=== PATIENT | male | born 1970 | race Caucasian/White ===

== ENCOUNTER 2020-06-23 06:17 | Emergency (ER) | payer OTHER, SELFPAY ==
[2020-06-23] VITALS (38 sets, daily range): BP systolic 145–184; BP diastolic 87–105; PULSE 81–113; RESP 12–42; TEMP 36.7; O2SAT 77–100
--- NOTE | ~2020-06-23 | XR_ITS ---
EXAMINATION: XR chest 1V portable EXAM DATE: 06/23/2020 07:31 INDICATION: Midsternal chest pain, shortness of breath. History of reflux. TECHNIQUE: Portable AP frontal chest x-ray was obtained. There is no prior study for comparison. FINDINGS: The lungs are clear. There are no pleural effusions. The cardiomediastinal silhouette is within normal limits. There is no pneumothorax suspected. The bones and soft tissues are unremarkab le. IMPRESSION: Normal chest x-ray exam. Reviewed, dictated and finalized at location A. IMPRESSION: Normal chest x-ray exam.
--- NOTE | ~2020-06-23 | CT_ITS ---
EXAMINATION: CTA chest PE abdomen pel EXAM DATE: 06/23/2020 09:46 INDICATION: Upper abdominal pain, intractable nausea, vomiting. TECHNIQUE: Spiral CTA of the chest (pulmonary arteries) was performed with 100 cc Omnipaque 350 intr avenous contrast injection. Images were acquired during the pulmonary arterial phase. Coronal maxi mum intensity projection 3D-reconstructions were created by the technologist on dedicated workstation . Axial, coronal and sagittal reformatted images were reviewed. Spiral CT of the abdomen and pelvis was then performed with the same intravenous contrast injection. Axial, coronal and sagittal reform atted images were reviewed. The dose-length product (DLP) for this examination was 2316.90 mGy-cm. The exposure was tailored according to patient size (auto mA exposure control), and iterative recons truction (ASIR) was used as additional dose reduction technique. Correlation is made to CT abdomen pe lvis 10/29/2013. FINDINGS: CHEST: There are no pulmonary emboli in the 1st through 3rd order (central and interlobar) pulmonary arteries. Some loss of attenuation in the right basilar segmental pulmonary from respiratory motion , these regions not confidently evaluated. No Intraluminal filling defects identified. No thoracic aortic dissection. The lungs are clear. There are no pleural or pericardial effusions. Tracheobr onchial tree is patent. There is no mediastinal, hilar or axillary lymphadenopathy. There is no p neumothorax. Heart normal in size. No evidence of coronary arterial calcification. The mid and d istal esophageal wall appears to have thickened wall, probably esophagitis. ABDOMEN PELVIS: There is hepatic steatosis without suspicious focal lesion identified. Spleen, adrena l glands, pancreas are unremarkable. Gallbladder is unremarkable. No biliary obstruction. Portal a nd splenic veins are patent. Kidneys enhance symmetrically. There is no hydronephrosis. The prost ate is unremarkable. The bladder is unremarkable. There is no retroperitoneal or pelvic lymphadenop athy. 0 The appendix is normal. There is mild scattered colonic diverticulosis. There is no adjacent inflamm atory change to suggest diverticulitis. The stomach and small bowel are unremarkable. There is expec rayshawn amount of colonic stool. No free intraperitoneal gas. There are no osteoblastic or osteolytic lesions identified. IMPRESSION: 1. Mid and distal esophageal edema, esophagitis. 2. Mild colonic diverticulosis. 3. Hepatic steatosis. 4. No evidence of pulmonary embolism. Reviewed, dictated and finalized at location A.
--- NOTE | 2020-06-23 06:40 | ECG_ITS ---
Measurements Intervals [place] Rate: 93 P: 53 LA: 198 QRS: 27 QRSD: 87 T: 81 QT: 378 QTc: 470 Interpretive Statements SINUS RHYTHM EARLY PRECORDIAL R/S TRANSITION NONSPECIFIC T-WAVE ABNORMALITY- HIGH LATERAL LEADS BORDERLINE ECG Electronically Signed On 06-23-2020 8:00:50 CDT by Meet Webster D.O.
[2020-06-23 07:02] LABS: Basophils Absolute Auto 0.1 K/mm3 (0.0-0.1); Basophils Percent Auto 0.4 % (0.2-1.2); Eosinophils Absolute Auto 1.6 K/mm3 (0-0.3); Eosinophils Percent Auto 7.1 % (0-4.4); Hematocrit 46.7 % (42.0-52.0); Immature Granulocyte Absolute 0.22 K/mm3 (0.00-0.031); Lymphocytes Absolute Auto 1.26 K/mm3 (0.9-3.2); Lymphocytes Percent Auto 5.6 % (18.3-44.2); Mean Corpuscular HGB Conc 34.3 g/dl (32-36); Mean Corpuscular Volume 87.5 fl (80-100); Mean Platelet Volume 8.3 fl (7.4-10.4); Monocytes Absolute Auto 0.8 K/mm3 (0.1-0.6); Monocytes Percent Auto 3.6 % (2.6-8.5); Neutrophils Absolute Auto 18.4 K/mm3 (1.3-6.7); Neutrophils Percent Auto 82.3 % (45.5-73.1); Platelet Count Result 369 k/mm3 (150-375); Red Blood Count 5.34 M/mm3 (4.6-6.20); White Blood Count 22.4 K/mm3 (4.5-10.0)
[2020-06-23 07:17] LABS: Prothrombin Time 13.7 Seconds (11.1-14.7)
[2020-06-23 07:18] LABS: Partial Thromboplastin Time 33.7 SECONDS (22.3-36.8)
[2020-06-23 07:20] LABS: Alanine Aminotransferase 46 U/L (4-50); Alkaline Phosphatase 115 U/L (38-126); Anion Gap 15 mmol/L (8-16); Aspartate Amino Transferase 66 U/L (17-59); Bilirubin,Total 0.9 mg/dL (0.2-1.3); Blood Urea Nitrogen 21 mg/dL (9-20); Calcium 9.2 mg/dL (8.4-10.2); Carbon Dioxide 22 mmol/L (22-30); Chloride 99 mmol/L (98-107); Estimated CRCL calculation 120 ml/min; Estimated Glomerular Filt Rate > 60; Glucose 119 mg/dL (75-110); Lipase 82 U/L (23-300); Potassium 4.1 mmol/L (3.4-5.0); Sodium 136 mmol/L (137-145)
[2020-06-23 07:31] LABS: Troponin I < 0.012 ng/mL (0.000-0.034)
[2020-06-23] MEDS: ONDANSETRON INJ 4 MG/2 ML VIAL IV PUSH (07:32)
[2020-06-23] MEDS: PANTOPRAZOLE SODIUM IV 40 MG VIAL IV PUSH (07:32)
[2020-06-23] MEDS: BELLADONNA ALK/PHENOB ELIX 10 ML, MAG HYDROX/ALUMINUM HYD/SIMETH 30 ML, LIDOCAINE HCL 2... PO (07:32)
[2020-06-23] MEDS: LACTATED RINGERS 1,000 ML 999 ML IV CONT (07:32)
--- NOTE | 2020-06-23 07:40 | ED.GENADULT ---
HPI - General Adult General Chief complaint: Shortness of Breath/Dyspnea Stated complaint: SOB Time Seen by Provider: 06/23/20 07:00 Source: patient Mode of arrival: ambulatory Limitations: no limitations History of Present Illness HPI narrative: This is a 50 year old male with history of anxiety and GERD who presents for evaluation of nausea, vomiting and heart burn . He developed heartburn after eating dinner last night around 5 pm. He took Prilosec at that time without relief. He developed nausea, vomiting around 1030 last night and he continues to have vomiting. He is complaining of epigastric pain that radiates to his chest that has been constant since midnight. He has taken Peptol Bismol without relief of his symptoms. He also reports shortness of breath. He reports chills but he denies fever. He reports he had a normal bowel movement last night. He denies hematemesis or coffee ground emesis. Related Data Home Medications Medication Instructions Recorded Confirmed alprazolam 0.5 mg PO DAILY 03/11/19 03/14/19 cyclobenzaprine 10 mg PO DAILY 03/11/19 03/14/19 multivitamin [Multiple Vitamins] 1 tablet PO DAILY 03/11/19 03/14/19 omeprazole 20 mg PO DAILY 03/11/19 03/14/19 Allergies Allergy/AdvReac Type Severity Reaction Status Date / Time prochlorperazine Allergy Jittery Verified 06/23/20 06:30 [From Compazine] Review of Systems Review of Systems: All systems reviewed & are unremarkable except as noted in HPI and below PMFSH Past Medical History Medical History (Updated 06/23/20 @ 11:12 by Shani Peres MD) Anxiety GERD (gastroesophageal reflux disease) Social History Social History (Updated 06/23/20 @ 07:43 by Shani Peres MD) Smoking status: Never smoker Alcohol intake: current Substance use: never Exam Const: General: alert Orientation/consciousness: patient oriented x3 Other: hyperventilating Eyes: EOM: EOMs intact bilaterally Chest: Chest palpation & inspection: normal inspection of the chest Resp: Effort & Inspection: no retractions, tachypneic and no use of accessory muscles Auscultation: clear to auscultation bilaterally and no wheezes Cardio: Rate: regular rate Rhythm: regular rhythm Heart sounds: no murmurs GI: GI Palp: Yes Soft to palpation, No Tenderness to palpation present (GI), No Guarding due to palpation present (GI) and No Rigid due to palpation Auscultation: normal bowel sounds Skin: General skin exam: normal color Rashes: no rashes Neuro: General: patient oriented x3, moves all extremities and CN's II-XI intact bilaterally Psych: Affect: Anxious affect present Course Reevaluation(s) Reevaluation #1: PAtient appears more comfortable. He has no complaints. I reviewed labs and CT with patient. The cause of his symptoms appear to be GERD, esophagitis. He has had negative troponin x 2. He reports within the past year had negative coronary evaluation which showed no plaques so cardiac unlikely. I spoke with Mechanical Maintenance Supervisor, Dr. Adkins , who recommends high dose PPI with carafate and call for EGD as outpatient. Date: 06/23/20 Time: 11:09 Vital Signs Vital signs: Vital Signs Temperature 98.1 F 06/23/20 06:21 Pulse Rate 94 06/23/20 06:21 Respiratory Rate 36 H 06/23/20 06:21 Blood Pressure 169/105 H 06/23/20 06:21 Pulse Oximetry 100 06/23/20 06:21 Temperature 98.1 F 06/23/20 06:21 Pulse Rate 97 06/23/20 11:16 Respiratory Rate 12 06/23/20 11:16 Blood Pressure 165/87 H 06/23/20 11:16 Pulse Oximetry 99 06/23/20 11:16 Medical Decision Making Vital Signs Vital Signs: Vital Signs Temperature 98.1 F 06/23/20 06:21 Pulse Rate 94 06/23/20 06:21 Respiratory Rate 36 H 06/23/20 06:21 Blood Pressure 169/105 H 06/23/20 06:21 Pulse Oximetry 100 06/23/20 06:21 Temperature 98.1 F 06/23/20 06:21 Pulse Rate 97 06/23/20 11:16 Respiratory Rate 12 06/23/20 11:16 Blood
[2020-06-23] MEDS: diazePAM INJ (*CRX) 10 MG/2 ML SYRINGE 5 MG IV PUSH (08:17)
[2020-06-23] MEDS: diazePAM INJ (*CRX) 10 MG/2 ML SYRINGE 2.5 MG IV PUSH (09:32)
[2020-06-23 09:57] LABS: Troponin I < 0.012 ng/mL (0.000-0.034)
[2020-06-23] MEDS: NITROGLYCERIN SL 0.4 MG TABLET SUBLINGUAL (10:17)
--- NOTE | 2020-06-23 10:25 | PC.NURSE ---
Pt. stated nitro improved somewhat with chest discomfort after 2 nitros. Rating pain a 5/10 to a 4/10. ERP aware.
== END 2020-06-23 11:25 | disposition home or self-care (01) ==
PROVIDERS: Emergency Medicine; Emergency Provider General Practice; PCP Nurse Practitioner Adult Health
DX: F41.9 Anxiety disorder, unspecified (principal); K21.9 Gastro-esophageal reflux disease without esophagitis; K20.90 Esophagitis, unspecified without bleeding; K57.90 Diverticulosis of intestine, part unspecified, without perforation or abscess without bleeding; K76.0 Fatty (change of) liver, not elsewhere classified; R94.31 Abnormal electrocardiogram [ECG] [EKG]
CPT/HCPCS: 36415; 71045; 71275; 74177; 80053; 83690; 84484; 85025; 85610; 85730; 93005; 96361; 96374; 96375; 96376; 99284; A9270; C9113; J2405; J3360; J7120; Q9967

== ENCOUNTER → 2020-07-02 01:56 | Outpatient (CLI) | payer OTHER, SELFPAY ==
[2020-07-02 19:04] LABS: SARS-CoV-2 RNA PCR Negative
== END ==
PROVIDERS: PCP Nurse Practitioner Adult Health; Visit Provider Internal Medicine Gastroenterology
DX: Z01.812 Encounter for preprocedural laboratory examination (principal); Z20.822 Contact with and (suspected) exposure to COVID-19
CPT/HCPCS: C9803; U0003; U0005

== ENCOUNTER 2020-07-05 01:51 | Day surgery (SDC) | payer OTHER, SELFPAY ==
[2020-06-29 14:48] VITALS: BMI 34.4
[2020-07-05 06:59] VITALS: BP 110/52; PULSE 96; RESP 96; TEMP 36.7; O2SAT 98; BMI 35.6
--- NOTE | 2020-07-05 07:08 | PM.HPGS ---
History of Present Illness History of Present Illness Consent: Risks, benefits, and alternatives have been discussed and questions answered. Patient agrees to proceed with procedure. Chief complaint: esphogiaitis Narrative: Jose Camacho II is a 50 year old male Referred for evaluation of severe reflux symptoms. He had been on omeprazole for quite a while taking 20 or 40 mg a day. Two weeks ago after eating dinner he had severe pain in his chest and actually felt somewhat short of breath with that. There were also several episodes of vomiting. He was seen in the emergency room. Cardiac evaluation was negative. His CT scan showed thickening of the distal esophagus. He was sent home on pantoprazole b.i.d.. He s denies recent dysphagia, but recalls many years ago having had an issue when someone told him that his throat or esophagus was partially closed or narrrow. Review of Systems Review of Systems: All systems reviewed & are unremarkable except as noted in HPI and below PMFSH Past Medical History Medical History (Updated 07/05/20 @ 07:10 by Randy Gonzalez MD) Anxiety GERD (gastroesophageal reflux disease) Social History Social History Smoking status: Never smoker Alcohol intake: current Alcohol use details: socially Substance use: never Substance use type: marijuana Living arrangements: with family Gender identity (if verbalized by the patient): Male Spiritual care concerns: No Meds Home Medications and Allergies Home Medications Medication Instructions Recorded Confirmed Type alprazolam 2.5 mg PO DAILY 03/11/19 07/05/20 History cyclobenzaprine 10 mg PO TID 03/11/19 07/05/20 History multivitamin [Multiple Vitamins] 1 tablet PO DAILY 03/11/19 07/05/20 History ondansetron HCl [Zofran] 4 mg PO Q6H PRN #10 tablet 06/23/20 07/05/20 Rx pantoprazole 40 mg PO BID 14 Days #28 tablet 06/23/20 07/05/20 Rx aspirin 325 mg PO DAILY 06/29/20 07/05/20 History Allergies Allergy/AdvReac Type Severity Reaction Status Date / Time prochlorperazine Allergy Jittery Verified 07/05/20 06:58 [From Compazine] Vital Signs Vital Signs - 24 hr 07/05/20 06:59 Temperature 36.7 C Pulse Rate 96 Respiratory Rate 96 H Blood Pressure 110/52 L Pulse Oximetry 98 Exam Const: General: alert Orientation/consciousness: patient oriented x3 Resp: Auscultation: clear to auscultation bilaterally Cardio: Rhythm: regular rhythm GI: GI Palp: Yes Soft to palpation and No Tenderness to palpation present (GI) Neuro: General: patient oriented x3 Assessment and Plan Assessment and plan (1) GERD (gastroesophageal reflux disease): Code(s): K21.9 - Gastro-esophageal reflux disease without esophagitis Status: Acute Assessment and Plan: EGD with possible biopsy or dilatation or cautery.
[2020-07-05] MEDS: LACTATED RINGERS 1,000 ML 150 ML IV CONT (07:14)
--- NOTE | 2020-07-05 07:14 | P.PNAN_ITS ---
Anes - Initial Pre Proc Eval Procedure: Operation Date: 07/05/20 08:00 Proposed Procedures p Esophagogastroduodenoscopy - Randy Gonzalez MD Date/Time: 07/05/20 07:14 Surgeon: Randy Gonzalez MD Pre Op Diagnosis: esphogiaitis Patient Data Age: 50 Gender: M Height: 5 ft 10 in Weight: 112.9 kg Last Vital Signs Temp 36.7 C 07/05/20 06:59 Pulse 96 07/05/20 06:59 Resp 96 H 07/05/20 06:59 BP 110/52 L 07/05/20 06:59 Pulse Ox 98 07/05/20 06:59 Allergies Allergy/AdvReac Type Severity Reaction Status Date / Time prochlorperazine Allergy Jittery Verified 07/05/20 06:58 [From Compazine] Home Medications Medication Instructions Recorded Confirmed Type alprazolam 2.5 mg PO DAILY 03/11/19 07/05/20 History cyclobenzaprine 10 mg PO TID 03/11/19 07/05/20 History multivitamin [Multiple Vitamins] 1 tablet PO DAILY 03/11/19 07/05/20 History ondansetron HCl [Zofran] 4 mg PO Q6H PRN #10 tablet 06/23/20 07/05/20 Rx pantoprazole 40 mg PO BID 14 Days #28 tablet 06/23/20 07/05/20 Rx aspirin 325 mg PO DAILY 06/29/20 07/05/20 History Patient hx anesthesia problems: none Family hx anesthesia problems: none [facility] Past Medical History Medical History (Updated 07/05/20 @ 07:15 by Cruz Rankin MD) Anxiety GERD (gastroesophageal reflux disease) Obesity Surgical History Surgical History (Updated 07/05/20 @ 07:19 by Cruz Rankin MD) H/O colonoscopy Social History Social History Smoking status: Never smoker Alcohol intake: current Alcohol use details: socially Substance use: never Substance use type: marijuana Living arrangements: with family Gender identity (if verbalized by the patient): Male Spiritual care concerns: No Anes - Eval Final PreProcedure Day of Procedure 07/05/20 07:14 Patient weight: obese Heart: regular rate and rhythm Lungs: clear to auscultation Airway: Mallampati scale class II Neurological: alert and oriented Last oral intake: >/= 8 hours ASA classification: II Emergent: no Anesthetic plan: proceed Anesthesia type and monitoring: general GIVS and standard monitoring Informed Consent: The patient's anesthetic plan and its attendant risks and benefits were discussed with the patient/family/POA. Questions were solicited and answers provided to the satisfaction of the patient/family/POA.
[2020-07-05 08:02] VITALS: BP 136/86; PULSE 92; RESP 18; O2SAT 100
[2020-07-05 08:12] VITALS: BP 142/101; PULSE 95; RESP 20; O2SAT 100
[2020-07-05 08:22] VITALS: BP 134/90; PULSE 83; RESP 17; O2SAT 100
== END 2020-07-05 08:36 | disposition home or self-care (01) ==
PROVIDERS: PCP Nurse Practitioner Adult Health; Visit Provider Internal Medicine Gastroenterology
PROC: 0DJ08ZZ Inspection of Upper Intestinal Tract, Via Natural or Artificial Opening Endoscopic (ICD-10-PCS; CPT 43235; principal; 2020-07-05 08:00)
DX: K21.9 Gastro-esophageal reflux disease without esophagitis (principal); K31.7 Polyp of stomach and duodenum; F41.9 Anxiety disorder, unspecified; E66.9 Obesity, unspecified; Z68.35 Body mass index [BMI] 35.0-35.9, adult
CPT/HCPCS: 43239; 88305; 88313; C9803; J2704; J7120; U0003; U0005

== ENCOUNTER 2021-05-13 10:45 | Outpatient (CLI) | payer OTHER, SELFPAY ==
--- NOTE | ~2021-05-13 | US_ITS ---
EXAMINATION: US soft tissue lower back DATE: 05/13/2021 11:08 INDICATION: Mass of skin of the back. TECHNIQUE: Multiple grayscale and Doppler ultrasound images of the lower back were obtained. COMPARISON: CT 06/23/2020 FINDINGS: There is no abnormal soft tissue mass in the patient's area of concern in right lower back. IMPRESSION: 1. No abnormal soft tissue mass in the patient's area of concern in right lower back. Reviewed, dictated and finalized at location A. NKLER HELPER
== END 2021-05-13 10:46 | disposition home or self-care (01) ==
PROVIDERS: PCP Nurse Practitioner Adult Health; Visit Provider Nurse Practitioner Adult Health
DX: R22.2 Localized swelling, mass and lump, trunk (principal)
CPT/HCPCS: 76705

== ENCOUNTER 2023-02-02 01:28 | Day surgery (SDC) | payer OTHER, SELFPAY ==
[2023-01-23 10:47] VITALS: BMI 34.4
--- NOTE | 2023-01-30 10:39 | SUR.PREOP ---
Patient called regarding upcoming procedure. No answer- message left with arrival time and number to call for prep questions.
[2023-02-02 12:37] VITALS: BP 169/99; PULSE 95; RESP 16; TEMP 36.9; O2SAT 99
--- NOTE | 2023-02-02 12:45 | WPDANESEPPF ---
Anes - Initial Pre Proc Eval Procedure: Operation Date: 02/02/23 14:00 Proposed Procedures p Screening Colonoscopy - Randy Gonzalez MD Date/Time: 02/02/23 12:45 Surgeon: Randy Gonzalez MD Pre Op Diagnosis: neoplasm screening Patient Data Age: 52 Gender: M Height: 1.78 m Weight: 109 kg Allergies Allergy/AdvReac Type Severity Reaction Status Date / Time diphenhydramine Allergy Severe Migraine Verified 02/02/23 12:45 [From Benadryl Allergy] prochlorperazine Allergy Jittery Verified 02/02/23 12:45 [From Compazine] Home Medications Medication Instructions Recorded Confirmed Type Nexium BYMOUTH 11/06/22 11/06/22 History cyclobenzaprine 10 mg tablet 10 mg PO TID #90 tabs 11/06/22 01/23/23 Rx meloxicam 15 mg tablet 15 mg PO DAILY 11/06/22 01/23/23 History alprazolam 0.5 mg tablet 0.5 mg PO BID anxiety 01/23/23 01/23/23 History Patient hx anesthesia problems: none Family hx anesthesia problems: none Results Review: All pre-operative results and documents have been reviewed as part of the pre-operative evaluation. [facility] Past Medical History Medical History (Updated 11/06/22 @ 09:05 by Екатерина Lujan APRN) Anxiety GERD (gastroesophageal reflux disease) Obesity Surgical History Surgical History (Updated 07/05/20 @ 07:19 by Cruz Rankin MD) H/O colonoscopy Family History Family History (Updated 11/06/22 @ 08:16 by Shannon Hernandes MA) Father Carcinoma of colon Hypertension Heart disease Mother Asthma Breast cancer Diabetes mellitus Hypertension Depression Social History Social History (Updated 11/06/22 @ 08:20 by Shannon Hernandes MA) Smoking status: Current every day smoker Tobacco type: e-cigarettes/vaping Alcohol intake: current Alcohol use details: socially Substance use: current Substance use type: marijuana Other substance usage details: daily Lack of Transportation: No Lack of Food: Never True Current Housing: I Have Housing Concerned About Future Housing: No Difficulty Paying Gas/Electric Bills: No Difficulty Paying for Meds: No Currently Unemployed: No Education: Master's Degree or Higher Difficulty w/ Childcare or Family Care: No Living arrangements: with family Additional occupation/education comments: [employer] Gender identity (if verbalized by the patient): Male Spiritual care concerns: No Agree to blood products: Yes Anes - Eval Final PreProcedure Day of Procedure 02/02/23 12:45 Patient weight: obese Heart: regular rate and rhythm Lungs: clear to auscultation Airway: Mallampati scale class II Neurological: alert and oriented Last oral intake: >/= 8 hours ASA classification: III Emergent: no Anesthetic plan: proceed Anesthesia type and monitoring: general GIVS and standard monitoring Results Review: All pre-operative results and documents have been reviewed as part of the pre-operative evaluation. Informed Consent: The patient's anesthetic plan and its attendant risks and benefits were discussed with the patient/family/POA. Questions were solicited and answers provided to the satisfaction of the patient/family/POA.
[2023-02-02 12:48] VITALS: BMI 34.7
[2023-02-02] MEDS: LACTATED RINGERS 1,000 ML 150 ML IV CONT (13:01)
[2023-02-02 13:46] VITALS: BP 140/88; PULSE 99; RESP 16; O2SAT 99
[2023-02-02 13:56] VITALS: BP 162/87; PULSE 95; RESP 16; O2SAT 100
[2023-02-02 14:06] VITALS: BP 159/80; PULSE 93; RESP 20; O2SAT 100
--- NOTE | 2023-02-12 14:50 | P.HP_ITS ---
History of Present Illness History of Present Illness Consent: Risks, benefits, and alternatives have been discussed and questions answered. Patient agrees to proceed with procedure. Chief complaint: neoplasm screening Narrative: Jose Camacho II is a 52 year old male who was referred for colon cancer screening. He has a family history of colon cancer. His father had colon cancer. Review of Systems Review of Systems: All systems reviewed & are unremarkable except as noted in HPI and below PMFSH Past Medical History Medical History Anxiety GERD (gastroesophageal reflux disease) Obesity Surgical History Surgical History H/O colonoscopy Family History Family History Father Carcinoma of colon Hypertension Heart disease Mother Asthma Breast cancer Diabetes mellitus Hypertension Depression Social History Social History Smoking status: Current every day smoker Tobacco type: e-cigarettes/vaping Alcohol intake: current Alcohol use details: socially Substance use: current Substance use type: marijuana Other substance usage details: daily Lack of Transportation: No Lack of Food: Never True Current Housing: I Have Housing Concerned About Future Housing: No Difficulty Paying Gas/Electric Bills: No Difficulty Paying for Meds: No Currently Unemployed: No Education: Master's Degree or Higher Difficulty w/ Childcare or Family Care: No Living arrangements: with family 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 Gender identity (if verbalized by the patient): Male Spiritual care concerns: No Agree to blood products: Yes Meds Home Medications and Allergies Home Medications Medication Instructions Recorded Confirmed Type Nexium BYMOUTH 11/06/22 11/06/22 History cyclobenzaprine 10 mg tablet 10 mg PO TID #90 tabs 11/06/22 02/02/23 Rx meloxicam 15 mg tablet 15 mg PO DAILY 11/06/22 02/02/23 History alprazolam 0.5 mg tablet 0.5 mg PO BID anxiety 01/23/23 02/02/23 History Allergies Allergy/AdvReac Type Severity Reaction Status Date / Time diphenhydramine Allergy Severe Migraine Verified 02/02/23 12:45 [From Benadryl Allergy] prochlorperazine Allergy Jittery Verified 02/02/23 12:45 [From Compazine] Exam Resp: Auscultation: clear to auscultation bilaterally Cardio: Rate: regular rate Rhythm: regular rhythm GI: GI Palp: Yes Soft to palpation and No Tenderness to palpation present (GI) Assessment and Plan Assessment and plan (1) Screening for colon cancer: Code(s): Z12.11 - Encounter for screening for malignant neoplasm of colon Status: Acute Assessment and Plan: Colonoscopy with possible biopsy or polypectomy or cautery or injection of substances.
== END 2023-02-02 14:07 | disposition home or self-care (01) ==
PROVIDERS: PCP Nurse Practitioner Adult Health; Visit Provider Internal Medicine Gastroenterology
PROC: 0DJD8ZZ Inspection of Lower Intestinal Tract, Via Natural or Artificial Opening Endoscopic (ICD-10-PCS; CPT 45378; principal; 2023-02-02 14:00)
DX: Z12.11 Encounter for screening for malignant neoplasm of colon (principal); K57.30 Diverticulosis of large intestine without perforation or abscess without bleeding; K64.8 Other hemorrhoids; F41.9 Anxiety disorder, unspecified; K21.9 Gastro-esophageal reflux disease without esophagitis; F17.290 Nicotine dependence, other tobacco product, uncomplicated; F12.90 Cannabis use, unspecified, uncomplicated; E66.9 Obesity, unspecified; Z68.34 Body mass index [BMI] 34.0-34.9, adult; Z82.49 Family history of ischemic heart disease and other diseases of the circulatory system; Z80.0 Family history of malignant neoplasm of digestive organs; Z80.3 Family history of malignant neoplasm of breast
CPT/HCPCS: 45378; J2704; J7120

== ENCOUNTER 2023-02-20 09:37 | Outpatient (CLI) | payer OTHER, SELFPAY ==
[2023-02-20 19:32] LABS: Hemoglobin 14.9 g/dL (14.0-18.0); Mean Corpuscular HGB Conc 33.1 g/dl (32-36); Mean Corpuscular Hemoglobin 30.1 pg (26-34); Mean Corpuscular Volume 90.9 fl (80-100); Mean Platelet Volume 8.6 fl (7.4-10.4); Platelet Count Result 333 k/mm3 (150-375); Red Blood Count 4.95 M/mm3 (4.6-6.20); Red Cell Distribution Width 12.9 % (11.5-14.5)
[2023-02-20 19:54] LABS: Alanine Aminotransferase 32 U/L (6-50); Albumin Level 4.4 g/dL (3.5-5.1); Alkaline Phosphatase 89 U/L (38-126); Anion Gap 10 mmol/L (8-16); Aspartate Amino Transferase 68 U/L (17-59); Bilirubin,Total 0.7 mg/dL (0.2-1.3); Blood Urea Nitrogen 19 mg/dL (9-20); Carbon Dioxide 25 mmol/L (22-30); Chloride 104 mmol/L (98-107); Cholesterol 209 mg/dL (0-200); Estimated Glomerular Filt Rate > 60; Glucose 99 mg/dL (65-110); HDL Direct 36 mg/dL; Potassium 3.7 mmol/L (3.4-5.0); Sodium 139 mmol/L (137-145); Triglycerides 202 mg/dL (<150)
[2023-02-20 20:05] LABS: Hemoglobin A1C 5.3 % (<5.7); LDL Cholesterol Direct 126 mg/dL
== END 2023-02-20 09:38 | disposition home or self-care (01) ==
LOC: ANHBWCLAB 09:38
PROVIDERS: PCP Nurse Practitioner Adult Health; Visit Provider Nurse Practitioner Adult Health
DX: Z13.9 Encounter for screening, unspecified (principal)
CPT/HCPCS: 36415; 80053; 80061; 83036; 85027

== ENCOUNTER 2024-08-31 11:59 | Outpatient (CLI) | payer BC, SELFPAY ==
--- NOTE | ~2024-08-31 | XR_ITS ---
Right Knee Technique: AP, lateral, and sunrise views were obtained. Clinical History: Pain Findings: No fracture or dislocation is seen. Osseous alignment is anatomic. There is moderate degene rative change of the patellofemoral compartment. Soft tissues are unremarkable. No joint effusion is seen. Impression: Moderate patellofemoral compartment degenerative change. Reviewed, dictated and finalized at [facility]. Impression: Moderate patellofemoral compartment degenerative change.
--- NOTE | ~2024-08-31 | XR_ITS ---
Clinical Indication: Chest pain PA and lateral views of the chest: Comparison: 06/23/2020 Findings: The lungs are clear, without evidence of focal consolidation or pleural effusion. Cardiome diastinal silhouette is within normal limits. Bones and soft tissues are unremarkable. Impression: Normal chest. Reviewed, dictated and finalized at location . Impression: Normal chest.
--- OUTSIDE RECORDS SUMMARY | 2024-08-31 13:37 | XMS_ITS | Clinical Summary ---
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 Gender Identity Not on file Sexual Orientation Not on file Plan of Treatment Health Maintenance Due Date Last Done Comments Colorectal Cancer Screening Colonoscopy (10 Years) 1968 Annual Physical 1971 Hepatitis C 1986 Hepatitis B Vaccines (1 of 3 - 19+ 3-dose series) 1987 Pneumococcal Vaccine: 50+ Years (1 of 1 - PCV) 2018 Zoster Vaccines (1 of 2) 2018 DTaP, Tdap and Td Vaccines ( 2 - Tdap) 03/16/2019 03/16/2009 COVID-19 Vaccine (3 - 2023-2 5 season) 2023 05/29/2020, 05/02/2020 PHQ-2 (Physician [place]) 03/16/2024 Meningococcal B Vaccine Aged Out No l onger eligible based on patient's age to complete this topic Meningococcal Vaccine Aged Out No kye gene eligible based on patient's age to complete this topic RSV Immunizations Under 20 Months Aged Out No longer eligible b ased on patient's age to complete this topic Insurance [employer]
--- OUTSIDE RECORDS SUMMARY | 2024-08-31 13:37 | XMS_ITS | Encounter Summary ---
Author Organization [facility] Address 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
--- OUTSIDE RECORDS SUMMARY | 2024-08-31 13:37 | XMS_ITS | Clinical Summary ---
Author Organization [facility] [place] [address] Address [address] [place] [address] Care Team Providers Care Monumental Stonemason Name Role Phone Essie Moss MD Primary Care Provider Allergies Active Allergy Reactions Criticality Noted Date Comments Diphenhydramine Anxiety Low 05/13/2022 Prochlorperazine Anxiety Low 05/13/2022 Zolpidem Hallucinations Medium 05/13/2022 Medications cyclobenzaprine (FLEXERIL) 10 mg tablet Take 1 tablet (10 mg total) by mouth 3 (three) times a day 3 Active omeprazole (PriLOSEC) 20 mg capsule Take 2 capsules (40 mg total) by mouth daily Active meloxicam (MOBIC) 15 mg tablet Take 1 tablet (15 mg total) by mouth daily 3 Active ALPRAZolam (XANAX) 0.5 mg tabletIndicatio ns:UMANG (generalized anxiety disorder) TAKE 1-2 TABLETS BY MOUTH NIGHTLY NEEDED FOR ANXIETY. PLEASE TRY TO WEAN USE DISCUSSED AT APPT 50 tablet 3 Active busPIRone (BUSPAR) 15 mg tabletIndicatio ns:UMANG (generalized anxiety disorder) Take 1 tablet (15 mg total) by mouth 2 (two) times a day 180 tablet 1 3 Active Active Problems Problem Noted Date Diagnosed Date UMANG (generalized anxiety disorder) 05/13/2022 Gastroesophageal reflux disease 05/13/2022 Degeneration of lumbar intervertebral disc 11/29 Hyperlipidemia 03/22/2019 Immunizations Immunization Administration Dates Next Due DTaP 03/16/2009 Surgical History Surgery Date Site/Laterality Comments ELBOW SURGERY Right KNEE ARTHROSCOPY Bilateral SHOULDER SURGERY Left labrum tear, rotator cuff repair and bicep tendon Medical History Medical History Date Comments Back pain Anxiety GERD (gastroesophageal reflux disease) Family History Medical History Relation Name Comments Heart attack Father Hypertension Father Rectal cancer Father Alzheimer's disease Maternal Grandmother Bilateral breast cancer Mother Diabetes Mother Cancer Paternal Grandfather Relation Name Status Comments Father Other Maternal Grandmother Mother Alive Paternal Grandfather Social History Tobacco Use Types Packs/Day Years Used Date Smoking Tobacco: Never Smokeless Tobacco: Former Quit: 1997 Tobacco Cessation:Counseling Given: Not Answered PHQ-2 Answer Date Recorded PHQ-2 Total Score (If total score is 3 or more points, staff should administer the PHQ-9) 2 08/13/2022 Personal Safety Answer Date Recorded Getting School Help Needed Not on file 05/28 Sex and Gender Information Value Date Recorded Sex Assigned at Not on file Legal 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:41 PM RN HEMATOLOGY Gender Identity Not on file Sexual Orientation Not on file Obstetrics History Last Filed Vital Signs Vital Sign Reading Time Taken Comments Blood Pressure 142/80 08/13/2022 1:32 PM CDT Pulse 102 08/13/2022 1:02 PM CDT Temperature - - Respiratory Rate - - Oxygen Saturation - - Inhaled Oxygen Concentration - - Weight 114.3 kg (252 lb) 08/13/2022 1:02 PM CDT Height 177.8 cm (5' 10) 08/13/2022 1:02 PM CDT Body Mass Index 36.16 08/13/2022 1:02 PM CDT Plan of Treatment Health Maintenance Due Date Last Done Comments Colon Cancer Screening-Colonoscopy 1968 Hepatitis C Screening 1968 Prostate Cancer Screening-PSA 1968 Hepatitis B Screening 1986 Regular Well Visit/Exam 18-64 1986 Zoster Vaccine (1 of 2) 2018 DTaP/Tdap/Td Vaccine (2 - Tdap) 03/16/2019 03/16/2009 Depression Screening 08/14/2023 08/13/2022, 08/13/2022, 05/13/2022 Covid-19 Vaccine ( season) 2023 02/13/2021, 05/29/2020, 05/02/2020, Additional history exists Influenza Vaccine (Season Ended) 2024 Pneumococcal vaccine <65 Aged Out No longer eligible based on patient's age to complete this topic Insurance [facility] HMO Care Teams Monumental Stonemason Relationship Specialty Start Date End Date Essie Moss MD PCP - General Family Practice 05/13/22
--- OUTSIDE RECORDS SUMMARY | 2024-08-31 13:37 | XMS_ITS | Clinical Summary ---
Author Organization [facility] Address [address] [facility] [address] Attn: Epic Prelude ADT [place] [address] Care Team Providers Care Herb Counselor Name Role Phone Unavailable Primary Care Provider Unavailabl e Social History Tobacco Use Types Packs/Day Years Used Date Smoking Tobacco: Never Assessed Sex and Gender Information Value Date Recorded Sex Assigned at Not on file Legal Sex Male 5:45 AM [employer] Gender Identity Not on file Sexual Orientation Not on file Plan of Treatment Health Maintenance Due Date Last Done Comments DTAP/TDAP/TD VACCINES (1 - Tdap) 1987 HEPATITIS B VACCINES (1 of 3 - 19+ 3-dose series) 03/16 COLORECTAL SCREENING 2013 Colorectal Cancer Screening 2013 FIT-DNA Q 3 years 2013 FIT/FOBT Q 1 year 2013 Flex Sig/CT Colonography Q 5 years 2013 ZOSTER VACCINE (1 of 2) 2018 INFLUENZA VACCINE (#1) 2023
--- OUTSIDE RECORDS SUMMARY | 2024-08-31 13:37 | XMS_ITS | Referral Summary ---
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
== END 2024-08-31 12:00 | disposition home or self-care (01) ==
LOC: ANHBWCIMG 12:01
PROVIDERS: PCP Nurse Practitioner Adult Health; Visit Provider Nurse Practitioner Adult Health
DX: M17.11 Unilateral primary osteoarthritis, right knee (principal); R07.89 Other chest pain
CPT/HCPCS: 71046; 73562

== ENCOUNTER 2024-09-22 10:57 | Outpatient (CLI) | payer BC, SELFPAY ==
--- OUTSIDE RECORDS SUMMARY | 2024-09-22 11:05 | XMS_ITS | Referral Summary ---
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
--- OUTSIDE RECORDS SUMMARY | 2024-09-22 11:05 | XMS_ITS | Encounter Summary ---
Author Organization [facility] Address 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
--- OUTSIDE RECORDS SUMMARY | 2024-09-22 11:05 | XMS_ITS | Clinical Summary ---
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
--- OUTSIDE RECORDS SUMMARY | 2024-09-22 11:05 | XMS_ITS | Clinical Summary ---
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
--- OUTSIDE RECORDS SUMMARY | 2024-09-22 11:05 | XMS_ITS | Clinical Summary ---
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
[2024-09-22 18:51] LABS: Hematocrit 47.4 % (42.0-52.0); Hemoglobin 15.6 g/dL (14.0-18.0); Mean Corpuscular HGB Conc 32.9 g/dl (32-36); Mean Corpuscular Hemoglobin 29.8 pg (26-34); Mean Corpuscular Volume 90.6 fl (80-100); Platelet Count Result 350 k/mm3 (150-375); Red Blood Count 5.23 M/mm3 (4.6-6.20); White Blood Count 10.0 K/mm3 (4.5-10.0)
[2024-09-22 19:04] LABS: Alanine Aminotransferase 39 U/L (6-50); Albumin Level 4.5 g/dL (3.5-5.1); Alkaline Phosphatase 82 U/L (38-126); Anion Gap 13 mmol/L (4-12); Aspartate Amino Transferase 83 U/L (17-59); Bilirubin,Total 0.9 mg/dL (0.2-1.3); Blood Urea Nitrogen 16 mg/dL (9-20); Calcium 9.2 mg/dL (8.4-10.2); Carbon Dioxide 24 mmol/L (22-30); Chloride 103 mmol/L (98-107); Cholesterol 227 mg/dL (0-200); Estimated Glomerular Filt Rate > 60; Glucose 82 mg/dL (65-110); HDL Direct 35 mg/dL; Potassium 3.8 mmol/L (3.4-5.0); Sodium 140 mmol/L (137-145); Total Protein 8.4 g/dL (6.3-8.2); Triglycerides 185 mg/dL (<150)
[2024-09-22 20:51] LABS: Hemoglobin A1C 5.5 % (<5.7)
[2024-09-22 21:50] LABS: Prostate Specific Antigen 1.8 ng/mL (< OR = 4.0); Thyroid Stimulating Hormone 0.569 uIU/mL (0.465-4.680)
[2024-09-22 22:09] LABS: Vitamin B12 711.0 pg/mL (239-931)
== END 2024-09-22 10:58 | disposition home or self-care (01) ==
LOC: ANHBWCLAB 11:01
PROVIDERS: PCP Nurse Practitioner Adult Health; Visit Provider Nurse Practitioner Adult Health
DX: Z00.00 Encounter for general adult medical examination without abnormal findings (principal); Z12.5 Encounter for screening for malignant neoplasm of prostate; Z51.81 Encounter for therapeutic drug level monitoring; E66.9 Obesity, unspecified; R53.83 Other fatigue
CPT/HCPCS: 36415; 80053; 80061; 82607; 83036; 84153; 84443; 85027; G0103

== ENCOUNTER 2024-11-03 08:37 | Outpatient (CLI) | payer BC, SELFPAY ==
--- OUTSIDE RECORDS SUMMARY | 2024-11-03 08:49 | XMS_ITS | Clinical Summary ---
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
--- OUTSIDE RECORDS SUMMARY | 2024-11-03 08:49 | XMS_ITS | Clinical Summary ---
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
--- OUTSIDE RECORDS SUMMARY | 2024-11-03 08:49 | XMS_ITS | Encounter Summary ---
Author Organization [facility] Address 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
[2024-11-03 19:46] LABS: Alanine Aminotransferase 38 U/L (6-50); Albumin Level 4.4 g/dL (3.5-5.1); Alkaline Phosphatase 87 U/L (38-126); Aspartate Amino Transferase 76 U/L (17-59); Bilirubin,Total 0.4 mg/dL (0.2-1.3); Total Protein 7.9 g/dL (6.3-8.2)
[2024-11-11 18:07] LABS: Free Testosterone (Direct) 4.9 pg/mL (7.2-24.0)
== END 2024-11-03 08:38 | disposition home or self-care (01) ==
LOC: ANHBWCLAB 08:37
PROVIDERS: PCP Nurse Practitioner Adult Health; Visit Provider Nurse Practitioner Adult Health
DX: R74.8 Abnormal levels of other serum enzymes (principal); R53.83 Other fatigue
CPT/HCPCS: 36415; 80076; 84402; 84403